=== PATIENT | female | born 1960 | race Caucasian/White ===

== ENCOUNTER → 2019-11-25 | Outpatient (CLI) | payer OTHER ==
[~2019-11-25] MED LIST: CIPROFLOXACIN500 MG PO; CYCLOBENZAPRINE10 MG PO; Synthroid,Levo75 MCG PO; TRAMADOL HCL50 MG PO
[2019-11-25 10:09] LABS: BASO # 0.1 10*3/uL (0.0-0.1); BASO % 0.7 % (0.0-1.0); EOS # 0.3 10*3/uL (0.0-0.4); EOS % 2.9 % (1.0-4.0); HEMATOCRIT 44.2 % (37.0-47.0); LYMPH # 1.7 10*3/uL (1.3-4.4); LYMPH % 18.9 % (27.0-41.0); MEAN CELL VOLUME 97.1 fl (81.0-99.0); MEAN CORPUSCULAR HGB 32.5 pg (27.0-31.0); MEAN CORPUSCULAR HGB CONC 33.5 g/dl (33.0-37.0); MEAN PLATELET VOLUME 10.4 fl (9.6-12.3); MONO # 0.7 10*3/uL (0.1-1.0); MONO % 7.5 % (3.0-9.0); NEUT # 6.2 10*3/uL (2.3-7.9); NEUT % 69.7 % (47.0-73.0); PLATELET COUNT AUTOMATED 340 10*3/uL (130-400); RED BLOOD COUNT 4.55 10*6/uL (4.10-5.10); RED CELL DISTRI WIDTH 14.6 % (0-14.5); WHITE BLOOD COUNT 8.9 10*3/uL (4.8-10.8)
[2019-11-25 10:38] LABS: ALBUMIN 3.9 gm/dl (3.1-4.5); ALKALINE PHOSPHATASE 47 U/L (45-117); BUN 9 mg/dl (7-24); CHLORIDE 108 mmol/L (98-107); CHOLESTEROL 175 mg/dL (<200); CREATININE 0.64 mg/dL (0.55-1.02); HDL CHOLESTEROL 87 mg/dl (40-60); LDL CHOLESTEROL 78 mg/dL (9-159); POTASSIUM 3.9 mmol/L (3.5-5.1); SGOT/AST 39 IU/L (3-35); SGPT/ALT 42 U/L (12-78); SODIUM 139 mmol/L (136-145); TOTAL PROTEIN 8.3 gm/dL (6.4-8.2); TRIGLYCERIDES 48 mg/dl (<150); VLDL CHOLESTEROL 10 mg/dL (6-40)
== END | disposition home or self-care (01) ==
LOC: LAB 09:28
PROVIDERS: ATTEND Nurse Practitioner Family
DX: J44.9 Chronic obstructive pulmonary disease, unspecified (principal); E03.9 Hypothyroidism, unspecified

== ENCOUNTER → 2020-01-29 | Outpatient (CLI) | payer OTHER | END | disposition home or self-care (01) | LOC: COVID19 14:19 | PROVIDERS: ATTEND Nurse Practitioner Family | DX: R05 Cough (principal); R53.83 Other fatigue; F17.210 Nicotine dependence, cigarettes, uncomplicated; Z20.828 Contact with and (suspected) exposure to other viral communicable diseases ==

== ENCOUNTER → 2020-02-18 | Outpatient (CLI) | payer OTHER | END | disposition home or self-care (01) | LOC: CT 11:00 | PROVIDERS: ATTEND Nurse Practitioner Family | DX: J43.9 Emphysema, unspecified (principal); R05 Cough; I25.10 Atherosclerotic heart disease of native coronary artery without angina pectoris; J98.4 Other disorders of lung ==

== ENCOUNTER → 2021-03-09 | Outpatient (CLI) | payer OTHER | END | disposition home or self-care (01) | LOC: RAD 11:19 | PROVIDERS: ATTEND Nurse Practitioner Family | DX: J44.9 Chronic obstructive pulmonary disease, unspecified (principal); J84.10 Pulmonary fibrosis, unspecified ==

== ENCOUNTER → 2021-07-29 | Outpatient (CLI) | payer OTHER | END | disposition home or self-care (01) | LOC: CT 13:00 | PROVIDERS: ATTEND Internal Medicine Pulmonary Disease | DX: R91.8 Other nonspecific abnormal finding of lung field (principal); J43.9 Emphysema, unspecified; I25.10 Atherosclerotic heart disease of native coronary artery without angina pectoris; J98.4 Other disorders of lung ==

== ENCOUNTER → 2021-10-11 | Outpatient (CLI) | payer OTHER | END | disposition home or self-care (01) | LOC: RAD 15:32 | PROVIDERS: ATTEND Nurse Practitioner Family | DX: J43.9 Emphysema, unspecified (principal); J02.9 Acute pharyngitis, unspecified; R05.9 Cough, unspecified; R06.2 Wheezing ==